=== PATIENT | male | born 1990 | race Caucasian/White ===

== ENCOUNTER 2017-04-11 14:49 | Emergency (ER) | payer SELFPAY ==
[~2017-04-11] VITALS: Ht 170.2 cm; Wt 65.8 kg
[~2017-04-11 14:49] MED LIST: AC325T PO; AMOX500C2 PO; CODE-54 PO; CPR500T PO; DICL50TA3 PO; DICL50TA4 PO; HYDR-1231 PO; HYDR-34 PO; HYDR-707 PO; IBP600T1 PO; NAPR-243 PO; OSLT75CRX PO; SULF1TAB38 PO; VICODIN PO
--- OUTSIDE RECORDS SUMMARY | 2017-04-11 14:54 | XMS REPORT ---
Author CARSON Graham [facility] eClinicalWorks Address Unknown Phone Unavailable Care Team Providers Care Chairman President And Chief Executive Officer Name Role Phone CARSON SILVEIRA CP Unavailable Allergies, Adverse Reactions, Alerts Substance Reaction Event Type N.K.D.A. Info Not Available Non Drug Allergy Problems Problem Type Condition ICD-9 Code Onset Dates Condition Status Assessment Back pain 724.5 Active Problem Pain in joint, shoulder region 719.41 Active Medications Medication Code System Code Instructions Start Date End Date Status Dosage Diclofenac Sodium [facility] [address]-68 75 MG Orally 2 times a day as needed Jul 15, 2015 1 tablet Procedures Procedure Coding System Code Date Office Visit, Est Pt., Level 3 CPT-4 84647 Mar 25, 2015 Vital Signs Date/Time: Mar 25, 2015 Temperature 97.8 F Weight 145.3 lbs Height 68 in Pain Scale 6 1-10 Blood Pressure Diastolic 64 mmHg Blood Pressure Systolic 118 mmHg Cardiac Monitoring Heart Rate 72 bpm BMI 22.09 Index Results No Known Results Summary Purpose eClinicalWorks Submission
--- OUTSIDE RECORDS SUMMARY | 2017-04-11 14:54 | XMS REPORT ---
Author FEDERICA Smith Organization eClinicalWorks Address Unknown Phone Unavailable Care Team Providers Care Rolloff Truck Driver Name Role Phone FEDERICA WASSERMAN CP Unavailable Allergies No Known Allergies Problems Problem Type Condition Code Onset Dates Condition Status Problem Anxiety F41.9 Active Problem Pain in joint, shoulder region 719.41 Active Problem Major depressive disorder with single episode, remission status unspecified F32.9 Active Medications Medication Code System Code Instructions Start Date End Date Status Dosage Lexapro [facility] [address]-77 5 mg Orally Once a day February 06, 2016 2 tablets Clonidine HCl [facility] [address]-64 0.1 MG Orally twice a day February 06, 2016 1 tablet Results No Known Results Summary Purpose eClinicalWorks Submission
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
[2017-04-11] MEDS ORDERED: ACETAMINOPHEN 500 MG TAB (TYLENOL) PO ONE (15:15)
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
--- NOTE | 2017-04-11 15:28 | Diagnostic Imaging Report ---
INDICATION: Shortness of breath with body aches. EXAMINATION: PA and lateral views of the chest were obtained. FINDINGS: The lungs are well-aerated and clear. Heart is not enlarged. No hilar adenopathy. No pulmonary edema. No pneumothorax or pleural effusion. IMPRESSION: Normal PA and lateral chest. Dictated by: Dictated on workstation # [id number]
[2017-04-11 15:37] LABS: BASOPHILS # (AUTO) 0.1 10^3/uL (0.0-0.1); BASOPHILS % (AUTO) 1 % (0-10); EOSINOPHILS # (AUTO) 0.1 10^3/uL (0.0-0.3); EOSINOPHILS % (AUTO) 2 % (0-10); LYMPHOCYTES # (AUTO) 1.6 X 10^3 (1.0-4.0); LYMPHOCYTES % (AUTO) 26 % (12-44); MEAN CORPUSCULAR HEMOGLOBIN 33 PG (25-34); MEAN CORPUSCULAR HGB CONC 34 G/DL (32-36); MEAN CORPUSCULAR VOLUME 98 FL (80-99); MONOCYTES % (AUTO) 16 % (0-12); NEUTROPHILS # (AUTO) 3.3 X 10^3 (1.8-7.8); NEUTROPHILS % (AUTO) 55 % (42-75); PLATELET COUNT 189 10^3/uL (130-400); RED BLOOD COUNT 4.84 10^6/uL (4.35-5.85); RED CELL DISTRIBUTION WIDTH 13.5 % (10.0-14.5); WHITE BLOOD COUNT 6.1 10^3/uL (4.3-11.0)
[2017-04-11 15:56] LABS: ALANINE AMINOTRANSFERASE 14 U/L (0-55); ALBUMIN 4.2 GM/DL (3.2-4.5); ANION GAP 9 MMOL/L (5-14); ASPARTATE AMINO TRANSFERASE 16 U/L (5-34); BILIRUBIN,TOTAL 0.2 MG/DL (0.1-1.0); BLOOD UREA NITROGEN 11 MG/DL (7-18); BUN/CREATININE RATIO 12; CALCIUM 9.7 MG/DL (8.5-10.1); CARBON DIOXIDE 27 MMOL/L (21-32); CHLORIDE 100 MMOL/L (98-107); CREATININE SERUM 0.91 MG/DL (0.60-1.30); GFR ESTIMATED > 60; GLUCOSE 93 MG/DL (70-105); POTASSIUM 4.3 MMOL/L (3.6-5.0); SODIUM 136 MMOL/L (135-145); TOTAL PROTEIN 7.2 GM/DL (6.4-8.2)
[2017-04-11 16:23] VITALS: BP 123/72
== END 2017-04-11 16:23 | disposition home or self-care (01) ==
LOC: EDUNIT# 14:49 → ER 14:50
DX: J06.9 Acute upper respiratory infection, unspecified (principal); F41.9 Anxiety disorder, unspecified; F17.210 Nicotine dependence, cigarettes, uncomplicated; Z87.81 Personal history of (healed) traumatic fracture; Z87.828 Personal history of other (healed) physical injury and trauma
CPT/HCPCS: 36415; 71020; 80053; 85025; 99283

== ENCOUNTER 2017-12-22 03:11 | Emergency (ER) | payer OTHER ==
[~2017-12-22] VITALS: Ht 172.7 cm; Wt 77.1 kg
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
[2017-12-22 04:30] LABS: BASOPHILS % (AUTO) 0 % (0-10); EOSINOPHILS % (AUTO) 0 % (0-10); HEMATOCRIT 41 % (40-54); HEMOGLOBIN 13.8 G/DL (13.3-17.7); LYMPHOCYTES # (AUTO) 1.6 X 10^3 (1.0-4.0); LYMPHOCYTES % (AUTO) 18 % (12-44); MEAN CORPUSCULAR HEMOGLOBIN 32 PG (25-34); MEAN CORPUSCULAR HGB CONC 34 G/DL (32-36); MEAN CORPUSCULAR VOLUME 94 FL (80-99); MEAN PLATELET VOLUME 9.9 FL (7.4-10.4); MONOCYTES # (AUTO) 1.5 X 10^3 (0.0-1.0); MONOCYTES % (AUTO) 16 % (0-12); NEUTROPHILS % (AUTO) 66 % (42-75); PLATELET COUNT 273 10^3/uL (130-400); RED BLOOD COUNT 4.37 10^6/uL (4.35-5.85); RED CELL DISTRIBUTION WIDTH 15.5 % (10.0-14.5); WHITE BLOOD COUNT 9.1 10^3/uL (4.3-11.0)
[2017-12-22 05:12] LABS: ALANINE AMINOTRANSFERASE 129 U/L (0-55); ALBUMIN 4.9 GM/DL (3.2-4.5); ALKALINE PHOSPHATASE 48 U/L (40-136); BILIRUBIN,TOTAL 0.6 MG/DL (0.1-1.0); BUN/CREATININE RATIO 16; CALCIUM 9.7 MG/DL (8.5-10.1); CARBON DIOXIDE 23 MMOL/L (21-32); CHLORIDE 106 MMOL/L (98-107); CREATININE SERUM 0.92 MG/DL (0.60-1.30); GFR ESTIMATED > 60; GLUCOSE 106 MG/DL (70-105); POTASSIUM 3.6 MMOL/L (3.6-5.0); SODIUM 141 MMOL/L (135-145); TOTAL PROTEIN 7.8 GM/DL (6.4-8.2)
[2017-12-22 05:41] VITALS: BP 137/92
--- NOTE | 2017-12-22 08:08 | Diagnostic Imaging Report ---
Patient History: Syncope, head injury. Pain and soreness. Technique: Single frontal view of the chest Comparison: 04/11/2017 FINDINGS: The lung volumes are normal. No focal consolidation is seen. No large pleural effusion or pneumothorax is seen. The cardiomediastinal silhouette is normal in size and contour. No acute osseous abnormality is seen. There is an old healed left clavicular fracture. IMPRESSION: No acute pulmonary abnormality seen. Dictated by: Dictated on workstation # [id number]
--- NOTE | 2017-12-22 08:17 | Diagnostic Imaging Report ---
PATIENT HISTORY: Syncope, head injury, fall. Pain and soreness. TECHNIQUE: 3 views of the cervical spine COMPARISON: 11/21/2012. CT from 09/17/2013 FINDINGS: There is reversal of the cervical lordosis centered at C4 which may be positional. No spondylolisthesis is seen. Minimal uncovertebral arthropathy is seen at C5-6. Vertebral body heights and disc heights are generally preserved. Prevertebral soft tissues are unremarkable. The C1-2 alignment appears normal. No acute fracture is seen. IMPRESSION: 1. No acute osseous abnormality seen in the cervical spine. Dictated by: Dictated on workstation # [id number]
== END 2017-12-22 05:40 | disposition home or self-care (01) ==
LOC: EDUNIT# 03:11 → ER 03:16
DX: S09.90XA Unspecified injury of head, initial encounter (principal); R55 Syncope and collapse; M54.2 Cervicalgia; R74.0 Nonspecific elevation of levels of transaminase and lactic acid dehydrogenase [LDH]; R45.851 Suicidal ideations; F41.9 Anxiety disorder, unspecified; F15.90 Other stimulant use, unspecified, uncomplicated; Z98.890 Other specified postprocedural states; Z87.81 Personal history of (healed) traumatic fracture; W18.30XA Fall on same level, unspecified, initial encounter; Y92.148 Other place in prison as the place of occurrence of the external cause
CPT/HCPCS: 36415; 71045; 72040; 80053; 80320; 85025

== ENCOUNTER 2018-03-28 16:09 | Emergency (ER) | payer SELFPAY ==
[~2018-03-28] VITALS: Ht 172.7 cm; Wt 72.6 kg
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
[2018-03-28] MEDS ORDERED: NS IV 1000 ML 1,000 ML IV SCH ×2 (17:00→18:30)
[2018-03-28] MEDS ORDERED: fentaNYL INJECTION 100 MCG/2 ML AMP IVP ONE (17:00)
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
[2018-03-28 17:28] LABS: BASOPHILS % (AUTO) 1 % (0-10); EOSINOPHILS # (AUTO) 0.1 10^3/uL (0.0-0.3); EOSINOPHILS % (AUTO) 1 % (0-10); HEMATOCRIT 42 % (40-54); HEMOGLOBIN 14.3 G/DL (13.3-17.7); LYMPHOCYTES # (AUTO) 1.9 X 10^3 (1.0-4.0); LYMPHOCYTES % (AUTO) 37 % (12-44); MEAN CORPUSCULAR HEMOGLOBIN 32 PG (25-34); MEAN CORPUSCULAR HGB CONC 34 G/DL (32-36); MEAN CORPUSCULAR VOLUME 95 FL (80-99); MEAN PLATELET VOLUME 10.6 FL (7.4-10.4); MONOCYTES # (AUTO) 0.7 X 10^3 (0.0-1.0); MONOCYTES % (AUTO) 13 % (0-12); NEUTROPHILS # (AUTO) 2.4 X 10^3 (1.8-7.8); NEUTROPHILS % (AUTO) 48 % (42-75); PLATELET COUNT 225 10^3/uL (130-400); RED BLOOD COUNT 4.41 10^6/uL (4.35-5.85); RED CELL DISTRIBUTION WIDTH 13.3 % (10.0-14.5); WHITE BLOOD COUNT 5.1 10^3/uL (4.3-11.0)
[2018-03-28 17:49] LABS: ALANINE AMINOTRANSFERASE 15 U/L (0-55); ALBUMIN 4.9 GM/DL (3.2-4.5); ALKALINE PHOSPHATASE 50 U/L (40-136); BILIRUBIN,TOTAL 0.5 MG/DL (0.1-1.0); BUN/CREATININE RATIO 8; CALCIUM 9.9 MG/DL (8.5-10.1); CARBON DIOXIDE 28 MMOL/L (21-32); CHLORIDE 104 MMOL/L (98-107); CREATININE SERUM 1.19 MG/DL (0.60-1.30); GFR ESTIMATED > 60; GLUCOSE 98 MG/DL (70-105); POTASSIUM 3.4 MMOL/L (3.6-5.0); SODIUM 141 MMOL/L (135-145); TOTAL PROTEIN 7.6 GM/DL (6.4-8.2)
--- NOTE | 2018-03-28 18:07 | Diagnostic Imaging Report ---
PROCEDURE: CT urinary tract, rule out kidney stone. TECHNIQUE: Multiple contiguous axial images were obtained through the abdomen and pelvis without the use of intravenous contrast. INDICATION: Difficulty urinating. History of kidney stone. COMPARISON: 09/17/2013. FINDINGS: The kidneys show mild increased density of the renal pyramids which could be secondary to medullary sponge kidney. There are no focal kidney calculi. The renal outlines are smooth. There is no evidence of hydronephrosis. The ureters are not dilated. The bladder does show urine present with smooth wall. No evidence of outlet obstruction. Prostate is not enlarged. No pelvic masses. The stomach and small bowel are not distended. The colon shows normal stool and gas pattern. No evidence of constipation. The appendix is normal. There is no free air or free fluid. No intra-abdominal adenopathy. The lung bases are clear. The liver appears normal. Gallbladder and bile ducts are normal. Pancreas and spleen are normal. The adrenal glands are normal. No bony abnormalities. IMPRESSION: 1. There are no acute findings demonstrated within the abdomen or pelvis. Specifically, no evidence of renal calculi or obstruction. 2. Mild increased density of the renal pyramids of the kidneys bilaterally which may be secondary to mild medullary sponge kidneys. Clinical correlation. Dictated by: Dictated on workstation # [id number]
[2018-03-28 18:31] LABS: CLARITY,URINE VERY CLOUDY; COLOR,URINE AMBER; GLUCOSE, URINE (UA) NEGATIVE (NEGATIVE); KETONES,URINE 1+ (NEGATIVE); LEUKOCYTE ESTERASE ,URINE 1+ (NEGATIVE); NITRITE,URINE NEGATIVE (NEGATIVE); PH,URINE 6 (5-9); PROTEIN,URINE 2+ (NEGATIVE); UROBILINOGEN,URINE 1 MG/DL (NORMAL)
[2018-03-28 18:46] LABS: BACTERIA,URINE NEGATIVE /HPF; BILIRUBIN,URINE 1+ (NEGATIVE); CALCIUM OXALATE CRYSTALS,UR FEW /LPF; RBC,URINE >100 /HPF; URINE OTHER FEW SPERM /HPF
[2018-03-28] MEDS ORDERED: SULF1TAB35 PO (18:50)
[2018-03-28 18:54] LABS: AMPHETAMINE SCREEN, URINE POSITIVE (NEGATIVE); BARBITURATE SCREEN URINE NEGATIVE (NEGATIVE); BENZODIAZEPINES SCREEN URINE NEGATIVE (NEGATIVE); CANNABINOID SCREEN, URINE POSITIVE (NEGATIVE); COCAINE SCREEN URINE NEGATIVE (NEGATIVE); METHADONE STAT NEGATIVE (NEGATIVE); METHAMPHETAMINE SCREEN URINE S NEGATIVE (NEGATIVE); OPIATE SCREEN URINE NEGATIVE (NEGATIVE); OXYCODONE STAT NEGATIVE (NEGATIVE); PROPOXYPHENE STAT NEGATIVE (NEGATIVE); TRICYCLIC ANTIDEPRESSANTS SCRE NEGATIVE (NEGATIVE)
[2018-03-28] MEDS ORDERED: LEVOFLOXACIN 500 MG TAB (LEVAQUIN) PO ONE (19:00)
[2018-03-28 20:05] VITALS: BP 118/91
== END 2018-03-28 20:05 | disposition home or self-care (01) ==
LOC: EDUNIT# 16:09 → ER 16:11
DX: N39.0 Urinary tract infection, site not specified (principal); R34 Anuria and oliguria; F41.9 Anxiety disorder, unspecified; Z82.49 Family history of ischemic heart disease and other diseases of the circulatory system; Z87.442 Personal history of urinary calculi
CPT/HCPCS: 36415; 74176; 80053; 80306; 81000; 85025; 87088; 96361; 96374

== ENCOUNTER 2018-04-19 15:45 | Emergency (ER) | payer SELFPAY ==
[~2018-04-19] VITALS: Ht 175.3 cm; Wt 77.1 kg
[~2018-04-19 15:45] MED LIST changes: +SULF1TAB35 PO
[2018-04-19] MEDS ORDERED: FLUORESCEIN (FLUOR-I-STRIPS) 1 MG STRP ONE (17:22)
[2018-04-19] MEDS ORDERED: TETRACAINE 0.5% OPHTH SOLN 4 ML BTL (SINGLE DOSE ONLY) ONE (17:22)
[2018-04-19] MEDS ORDERED: TETRACAINE 0.5% OPHTH SOLN 4 ML BTL (SINGLE DOSE ONLY) OU ONE (17:30)
[2018-04-19] MEDS ORDERED: FLUORESCEIN (FLUOR-I-STRIPS) 1 MG STRP OU ONE (17:30)
[2018-04-19] MEDS ORDERED: RX-TOBRA/DEXAMETH (TOBRADEX) OP. SUSP 2.5 ML BTL OU STA (17:38)
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
[2018-04-19 17:50] VITALS: BP 126/93
== END 2018-04-19 17:51 | disposition home or self-care (01) ==
LOC: EDUNIT# 15:45 → ER 15:47
DX: S05.01XA Injury of conjunctiva and corneal abrasion without foreign body, right eye, initial encounter (principal); H20.00 Unspecified acute and subacute iridocyclitis; F41.9 Anxiety disorder, unspecified; F17.210 Nicotine dependence, cigarettes, uncomplicated; Z82.49 Family history of ischemic heart disease and other diseases of the circulatory system; X58.XXXA Exposure to other specified factors, initial encounter
CPT/HCPCS: 99283

== ENCOUNTER 2018-05-16 03:28 | Emergency (ER) | payer SELFPAY ==
[~2018-05-16] VITALS: Ht 175.3 cm; Wt 68.0 kg
[2018-05-16] MEDS ORDERED: AZITHROMYCIN 250 MG TAB (ZITHROMAX) PO STA (03:41)
[2018-05-16] MEDS ORDERED: LIDOCAINE 1% INJ 20 ML 20 ML VIAL INJ ONE (03:45)
[2018-05-16] MEDS ORDERED: cefTRIAXone 250 MG/2.5 ML for IV (ROCEPHIN) IM ONE (03:45)
--- NOTE | 2018-05-16 03:50 | ED GU-Male ---
General Chief Complaint: -Male Stated Complaint: PROBLEMS IN PRIVATE AREA Nursing Triage Note: penile discharge, difficulty urinating, painful intercourse Source: patient Exam Limitations: no limitations History of Present Illness Date Seen by Provider: May 16, 2018 Time Seen by Provider: 03:35 Initial Comments Here with report of yellow discharge from the penis. This is been going on for about 3 days. Pain with urination and sexual activity. History of unprotected sex with current and previous sexual partner. Timing/Duration: getting worse, other (3 days) Severity/Quality: moderate Location: urethral Radiation: none Activities at Onset: sexual activity Prior Genitourinary Problems: none Sexual [place] History: less than 2 months ago, multiple partners Modifying Factors: Worsens With Urinating Associated Symptoms: dysuria, urinary frequency Allergies and Home Medications Allergies Coded Allergies: No Known Drug Allergies (Unverified , 03/20/10) Patient Home Medication List Home Medication List Reviewed: Yes Review of Systems Review of Systems Constitutional: see HPI; No chills, No fever Respiratory: no symptoms reported Cardiovascular: no symptoms reported Gastrointestinal: no symptoms reported Genitourinary: see HPI, burning, discharge Past Uijaaok-Yuanbm-Snulvp Hx Past Med/Social Hx: Reviewed Nursing Past Med/Soc Hx Patient Social History Alcohol Use: Denies Use Recreational Drug Use: No Drug of Choice: meth Smoking Status: Current Everyday Smoker Type Used: Cigarettes 2nd Hand Smoke Exposure: Yes Recent Foreign Travel: No Contact w/Someone Who Travel: No Recent Infectious Disease Expo: No Recent Hopitalizations: No Immunizations Up To Date Tetanus Booster (TDap): Less than 5yrs Seasonal Allergies Seasonal Allergies: No Past Medical History Surgeries: Yes Orthopedic Respiratory: No Cardiac: No Neurological: No Reproductive Disorders: No Sexually Transmitted Disease: Yes HIV/AIDS: No Genitourinary: No Gastrointestinal: No Musculoskeletal: Yes Fractures Endocrine: No HEENT: No Loss of Vision: Denies Hearing Impairment: Denies Cancer: No Psychosocial: No Anxiety Integumentary: No Blood Disorders: No Family Medical History Reviewed Nursing Family Hx Arthritis 19 FATHER 19 MOTHER G8 BROTHER G8 SISTER Cardiovascular disease . Diabetes mellitus Dysphasia 19 MOTHER Gastroenteritis 19 FATHER Hypertension . Myocardial infarction . Tuberculosis 19 FATHER 19 MOTHER No Family History of: AIDS Abdominal aortic aneurysm Hernando's disease Alcoholism Alzheimer's disease Aphasia Asthma Cancer of mouth Cataracts Colon cancer Completed stroke Congenital disease Congenital heart disease Coronary thrombosis Cystic fibrosis Deafness or hearing loss Dementia Fibrocystic disease of breast Glaucoma Headache disorder Hypercholesterolemia Infertility Kidney disease Neoplasm Not obtainable due to adoption Osteoporosis Parkinson's disease Prostate cancer Psychosocial problem Respiratory disorder Seizure disorder Severe allergy Thyroid disease Visual disorder Physical Exam Vital Signs Vital Signs - First Documented 05/16/18 03:35 Temp 97.5 Pulse 90 Resp 20 B/P (MAP) 150/92 (111) Pulse Ox 99 O2 Delivery Room Air Capillary Refill : Less Than 3 Seconds Height, Weight, BMI Height: 5'9.00" Weight: 150lbs. 0oz. 68.655207sr; 22.96 BMI Method:Stated General Appearance: WD/WN, no apparent distress Cardiovascular: regular rate, rhythm, no murmur Respiratory: lungs clear, normal breath sounds Male: No inguinal tenderness, No testicular tenderness; other (and will discharge at urethral meatus) Neurologic/Psychiatric: alert, oriented x 3 Skin: normal color, warm/dry Progress/Results/Core Measures Suspected Sepsis Recent Fever Within 48 Hours: No Infection Criteria Present: None New/Unexplained Altered Menta: No Sepsis Screen: No Definite Risk SIRS Temperature:97.5 Pulse: 90 Respiratory Rate: 20 Blood Pressure 150 /92 Mean: 111 Results/Orders My Orders Orders - FARHANA WOLFE MD Ua Culture If Indicated (05/16/18 03:41) Rocephin 250mg Im (05/16/18 03:45) Azithromycin Tablet (Zithromax Tablet) (05/16/18 03:41) Lidocaine 1% Inj 20 Ml (Xylocaine 1% Inj (05/16/18 03:45) Chlam Dna Probe (05/16/18 03:41) Neis Keo Dna Urine Test (05/16/18 03:41) Vital Signs/I&O 05/16/18 03:35 Temp 97.5 Pulse 90 Resp 20 B/P (MAP) 150/92 (111) Pulse Ox 99 O2 Delivery Room Air Capillary Refill : Less Than 3 Seconds Blood Pressure Mean: 111 Progress Note : Progress Note Seen and evaluated. Obvious findings of STI. Rocephin 250 mg IM and Zithromax 1 g by mouth. Discharged home with return precautions. Patient verbalize understanding instructions and agreement with plan. Departure Impression Primary Impression: Sexually transmitted disease Disposition: 01 HOME, SELF-CARE Condition: Improved Departure-Patient Inst. Decision time for Depature: 03:49 Referrals: [facility] (PCP/Family) Primary Care Physician Patient Instructions: Sexually-Transmitted Diseases (DC) Add. Discharge Instructions: All discharge instructions reviewed with patient and/or family. Voiced understanding. You need to inform your sexual partners of concerns for sexual transmitted disease. Follow-up at health department in 7-10 days for test of cure. Return for worse pain, fever, vomiting, weakness, breathing problems or other concerns as needed. Your symptoms should improve over the next several days. No sexual activity until you have test of cure. FARHANA WOLFE MD May 16, 2018 03:50
[2018-05-16 03:51] LABS: BILIRUBIN,URINE NEGATIVE (NEGATIVE); CLARITY,URINE VERY CLOUDY; COLOR,URINE YELLOW; GLUCOSE, URINE (UA) NEGATIVE (NEGATIVE); KETONES,URINE NEGATIVE (NEGATIVE); LEUKOCYTE ESTERASE ,URINE 3+ (NEGATIVE); NITRITE,URINE NEGATIVE (NEGATIVE); PH,URINE 6.5 (5-9); PROTEIN,URINE 2+ (NEGATIVE); UROBILINOGEN,URINE NORMAL (NORMAL)
[2018-05-16 03:55] VITALS: BP 150/92
[2018-05-16 04:03] LABS: BACTERIA,URINE FEW /HPF; SQUAMOUS EPITHELIAL CELL,UR 0-2 /HPF; WBC,URINE 25-50 /HPF
== END 2018-05-16 04:00 | disposition home or self-care (01) ==
LOC: EDUNIT# 03:28 → ER 03:30
DX: A64 Unspecified sexually transmitted disease (principal); F41.9 Anxiety disorder, unspecified; F17.210 Nicotine dependence, cigarettes, uncomplicated
CPT/HCPCS: 36415; 81000; 87077; 87088; 87185; 87491; 87591; 96372; 99284

== ENCOUNTER 2019-09-12 01:48 | Emergency (ER) | payer SELFPAY ==
--- NOTE | 2019-09-12 03:10 | NUR ---
PT PRESENTED TO REGISTRATION DESK TO STATE HE WAS GOING TO LEAVE. NO LWBS/AMA FORM SIGNED.
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
== END 2019-09-12 03:10 | disposition left against medical advice (07) ==
LOC: EDUNIT# 01:48 → ER 01:51
DX: K08.89 Other specified disorders of teeth and supporting structures (principal); R19.7 Diarrhea, unspecified; R42 Dizziness and giddiness; R11.10 Vomiting, unspecified

== ENCOUNTER 2019-09-22 13:24 | Emergency (ER) | payer SELFPAY ==
[~2019-09-22] VITALS: Ht 175.3 cm; Wt 69.9 kg
[2019-09-22 13:31] VITALS: BP 121/79
[2019-09-22] MEDS ORDERED: TETRACAINE 0.5% OPHTH SOLN 4 ML BTL (SINGLE DOSE ONLY) OU ONE (13:45)
[2019-09-22] MEDS ORDERED: BSS 15 ML IR ONE (13:45)
[2019-09-22] MEDS ORDERED: FLUORESCEIN (FLUOR-I-STRIPS) 1 MG STRP OU ONE (13:45)
--- NOTE | 2019-09-22 14:08 | ED EENT ---
History of Present Illness General Chief Complaint: Eye Problems Stated Complaint: R EYE INJ Nursing Triage Note: PT AMBULATE TO TRIAGE WITH C/O RIGHT EYE INJURY. PT WAS SEEN IN CLINIC 09/20/19 AND GIVEN ABX. PT STATES EYE IS NOT BETTER YET. PT REPORTS RIGHT SIDED NECK PAIN AND SWELLING SINCE INJURY. Source: patient Exam Limitations: no limitations History of Present Illness Date Seen by Provider: Sep 22, 2019 Time Seen by Provider: 14:03 Initial Comments To ER with right eye redness. He wiped his eye on 09/19/19 because he was sweating he was sweating. That evening he noticed redness and pain to the eye. He saw [facility] the next day and was given Polysporin ophthalmic. Despite 2 days of use of that the eye is still very red and somewhat painful. Does have a small amount of discharge at the medial canthus of his eye in the mornings. Does not work contact lenses. Timing/Duration: abrupt Location: eye (R) Associated Symptoms: denies symptoms Allergies and Home Medications Allergies Coded Allergies: No Known Drug Allergies (Unverified , 03/20/10) Home Medications Erythromycin Base 1 Gm Oint...g., 0 OP Q6H 1/2 inch Prescribed by: ALEX ARMSTRONG on 09/22/19 1412 Ketorolac Tromethamine 5 Ml Drops, 1 DROP OP QID PRN for PAIN-MODERATE (5-7) Prescribed by: ALEX ARMSTRONG on 09/22/19 1412 Patient Home Medication List Home Medication List Reviewed: Yes Review of Systems Review of Systems Constitutional: see HPI Eyes: See HPI Ears: Pain Nose: no symptoms reported Mouth: no symptoms reported Throat: no symptoms reported Respiratory: no symptoms reported Cardiovascular: no symptoms reported Musculoskeletal: no symptoms reported Past Ysdwqds-Ubgaiu-Posuci Hx Patient Social History Alcohol Use: Denies Use Recreational Drug Use: No Drug of Choice: meth Smoking Status: Current Everyday Smoker Type Used: Cigarettes 2nd Hand Smoke Exposure: Yes Recent Foreign Travel: No Contact w/Someone Who Travel: No Recent Infectious Disease Expo: No Recent Hopitalizations: No Physical Abuse: No Sexual Abuse: No Mistreated: No Fear: No Immunizations Up To Date Tetanus Booster (TDap): Less than 5yrs Seasonal Allergies Seasonal Allergies: No Past Medical History Surgeries: Yes Orthopedic Respiratory: No Cardiac: No Neurological: No Reproductive Disorders: No Sexually Transmitted Disease: Yes HIV/AIDS: No Genitourinary: No Gastrointestinal: No Musculoskeletal: Yes Fractures Endocrine: No HEENT: No Loss of Vision: Denies Hearing Impairment: Denies Cancer: No Psychosocial: No Anxiety Integumentary: No Blood Disorders: No Family Medical History Arthritis 19 FATHER 19 MOTHER G8 BROTHER G8 SISTER Cardiovascular disease . Diabetes mellitus Dysphasia 19 MOTHER Gastroenteritis 19 FATHER Hypertension . Myocardial infarction . Tuberculosis 19 FATHER 19 MOTHER No Family History of: AIDS Abdominal aortic aneurysm [place]'s disease Alcoholism Alzheimer's disease Aphasia Asthma Cancer of mouth Cataracts Colon cancer Completed stroke Congenital disease Congenital heart disease Coronary thrombosis Cystic fibrosis Deafness or hearing loss Dementia Fibrocystic disease of breast Glaucoma Headache disorder Hypercholesterolemia Infertility Kidney disease Neoplasm Not obtainable due to adoption Osteoporosis Parkinson's disease Prostate cancer Psychosocial problem Respiratory disorder Seizure disorder Severe allergy Thyroid disease Visual disorder Physical Exam Vital Signs Vital Signs - First Documented 09/22/19 13:31 Temp 36.6 Pulse 81 Resp 17 B/P (MAP) 121/79 (93) O2 Delivery Room Air Height, Weight, BMI Height: 5'9.00" Weight: 150lbs. 0oz. 68.176798ag; 22.00 BMI Method:Stated General Appearance: WD/WN, no apparent distress Eyes: left eye normal inspection, left eye conjunctival inflammation, left eye other (does have the appearance of follicular conjunctivitis in the right eye only, chlamydial conjunctivitis is within the differential. Gonorrhea cornea swab obtained from the lower conjunctival sac. I'll change him from Polysporin Ophthalmic to erythromycin ophthalmic as well as giving him ketorolac eyedrops.); bilateral eye PERRL, bilateral eye EOMI Ears: bilateral ear auricle normal, bilateral ear canal normal, bilateral ear TM normal Mouth/Throat: normal mouth inspection, pharynx normal Neck: non-tender, full range of motion (delayed healing) Respiratory: no respiratory distress, no accessory muscle use Neurologic/Psychiatric: alert, normal mood/affect Skin: normal color, warm/dry Progress/Results/Core Measures Results/Orders My Orders Orders - ALEX ARMSTRONG APRN Tetracaine 0.5% Ophth Fide Sdv (Tetracai (09/22/19 13:45) Fluorescein Strips (Uuxxp-I-Vdtycr) (09/22/19 13:45) Balanced Salt Irrigation Soln (Bss Irrig (09/22/19 13:45) Eye Culture (09/22/19 14:01) Chlam Dna Probe (09/22/19 14:01) Neisseria Gonorrhea Swab (09/22/19 14:01) Medications Given in ED Current Medications Medications Dose Ordered Sig/Adolfo Route Start Time Stop Time Status Last Admin Dose Admin Balanced Salt Solution 15 ml ONCE ONCE IR 09/22/19 13:45 09/22/19 13:46 DC 09/22/19 13:44 15 ML Fluorescein Sodium 1 mg ONCE ONCE OU 09/22/19 13:45 09/22/19 13:46 DC 09/22/19 13:44 1 MG Tetracaine HCl 4 ml ONCE ONCE OU 09/22/19 13:45 09/22/19 13:46 DC 09/22/19 13:44 4 ML Vital Signs/I&O 09/22/19 13:31 Temp 36.6 Pulse 81 Resp 17 B/P (MAP) 121/79 (93) O2 Delivery Room Air Blood Pressure Mean: 93 Departure Impression Primary Impression: Follicular conjunctivitis of right eye Disposition: HOME, SELF-CARE Condition: Stable Departure-Patient Inst. Decision time for Depature: 14:09 Referrals: [facility] (PCP/Family) Primary Care Physician Patient Instructions: Conjunctivitis ([place]) Add. Discharge Instructions: 1. Stop the current eyedrops 2. Start the new eye ointment, 1/2 inch in the lower eyelid 4 times a day for 5 days. Use the anti-inflammatory eyedrop (ketorolac) 1 drop 4 times daily for pain. All discharge instructions reviewed with patient and/or family. Voiced unde rstanding. Scripts Erythromycin Base (Erythromycin Opthalmic Ointment) 1 Gm Oint...g. 0 OP Q6H for 5 Days, #1 TUBE 1/2 inch Prov: ALEX ARMSTRONG CAREERS ADVISER 09/22/19 Ketorolac Tromethamine (Ketorolac Tromethamine) 5 Ml Drops 1 DROP OP QID PRN for PAIN-MODERATE (5-7), #1 DROPS Prov: ALEX ARMSTRONG CAREERS ADVISER 09/22/19 ALEX ARMSTRONG CAREERS ADVISER Sep 22, 2019 14:08
[2019-09-22] MEDS ORDERED: KETO5DRO14 OP (14:12)
[2019-09-22] MEDS ORDERED: ERYT1OIN6 OP (14:12)
== END 2019-09-22 14:21 | disposition home or self-care (01) ==
LOC: EDUNIT# 13:24 → ER 13:25
DX: H10.011 Acute follicular conjunctivitis, right eye (principal); F17.210 Nicotine dependence, cigarettes, uncomplicated; Z82.49 Family history of ischemic heart disease and other diseases of the circulatory system
CPT/HCPCS: 36415; 87070; 87491; 87591

== ENCOUNTER 2019-12-24 06:57 | Emergency (ER) | payer SELFPAY ==
[~2019-12-24] VITALS: Ht 172.7 cm; Wt 77.2 kg
[~2019-12-24 06:57] MED LIST changes: +ERYT1OIN6 OP; +KETO5DRO14 OP
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
[2019-12-24] MEDS ORDERED: KETOROLAC 30 MG/ML VIAL ONE (08:54)
[2019-12-24] MEDS ORDERED: LACTATED RINGERS 1,000 ML IV ONE (08:54)
[2019-12-24 09:43] LABS: BASOPHILS % (AUTO) 1 % (0-10); EOSINOPHILS # (AUTO) 0.2 10^3/uL (0.0-0.3); EOSINOPHILS % (AUTO) 3 % (0-10); HEMATOCRIT 43 % (40-54); HEMOGLOBIN 14.2 G/DL (13.3-17.7); LYMPHOCYTES # (AUTO) 2.1 X 10^3 (1.0-4.0); LYMPHOCYTES % (AUTO) 26 % (12-44); MEAN CORPUSCULAR HEMOGLOBIN 32 PG (25-34); MEAN CORPUSCULAR HGB CONC 33 G/DL (32-36); MEAN CORPUSCULAR VOLUME 95 FL (80-99); MEAN PLATELET VOLUME 10.4 FL (7.4-10.4); MONOCYTES # (AUTO) 1.1 X 10^3 (0.0-1.0); MONOCYTES % (AUTO) 14 % (0-12); NEUTROPHILS # (AUTO) 4.5 X 10^3 (1.8-7.8); NEUTROPHILS % (AUTO) 56 % (42-75); PLATELET COUNT 258 10^3/uL (130-400); RED CELL DISTRIBUTION WIDTH 13.2 % (10.0-14.5)
--- NOTE | 2019-12-24 09:46 | ED General ---
General Chief Complaint: Cough/Cold/Flu Symptoms Stated Complaint: COUGH SOB, Nursing Triage Note: AMB TO ROOM TRIAGE TAKEN BY DR WOLFE PATIENT REPORTS HE HAS HAD COUGH CONGESTION WITH SOA CONCERN HE WORKS IN [employer] Nursing Sepsis Screen: No Definite Risk Source of Information: Patient Exam Limitations: No Limitations History of Present Illness Date Seen by Provider: Dec 24, 2019 Time Seen by Provider: 08:50 Initial Comments Here with report of Congestion, runny nose, mild sore throat, mild cough, mild shortness of air and overall not feeling well with symptoms including body aches and headache. Onset over the last 2 days but worsened. 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 He does have the Plexiglas divider. There is community spread of COVID-19. He is concerned about COVID-19 infection. Is able to eat and drink okay although states he feels a little bit dehydrated as he is probably not drinking enough. Has not had anything for fever or pain. Denies any known sick contacts. Timing/Duration: 1-2 Days, Getting Worse Severity: Moderate Modifying Factors: improves with Rest Associated Systoms: No Chest Pain; Cough, Fever/Chills, Malaise; No Nausea/Vomiting; Shortness of Air, Weakness Allergies and Home Medications Allergies Coded Allergies: No Known Drug Allergies (Unverified , 03/20/10) Home Medications Erythromycin Base 1 Gm Oint...g., 0 OP Q6H 1/2 inch Prescribed by: ALEX ARMSTRONG on 09/22/19 1412 Ketorolac Tromethamine 5 Ml Drops, 1 DROP OP QID PRN for PAIN-MODERATE (5-7) Prescribed by: ALEX ARMSTRONG on 09/22/19 1412 Patient Home Medication List Home Medication List Reviewed: Yes Review of Systems Review of Systems Constitutional: see HPI, chills, fever, malaise EENTM: see HPI Respiratory: see HPI Cardiovascular: no symptoms reported Gastrointestinal: no symptoms reported Genitourinary: no symptoms reported Musculoskeletal: joint pain, muscle pain Skin: no symptoms reported Psychiatric/Neurological: Headache, Weakness Past Wnxwnpv-Ibvyql-Dpdgkc Hx Past Med/Social Hx: Reviewed Nursing Past Med/Soc Hx Patient Social History Alcohol Use: Denies Use Recreational Drug Use: No Drug of Choice: meth Smoking Status: Current Everyday Smoker Type Used: Cigarettes 2nd Hand Smoke Exposure: Yes Recent Foreign Travel: No Contact w/Someone Who Travel: No Recent Infectious Disease Expo: No Recent Hopitalizations: No Immunizations Up To Date Tetanus Booster (TDap): Less than 5yrs Seasonal Allergies Seasonal Allergies: No Past Medical History Surgeries: Yes Orthopedic Respiratory: No Cardiac: No Neurological: No Reproductive Disorders: No Sexually Transmitted Disease: Yes HIV/AIDS: No Genitourinary: No Gastrointestinal: No Musculoskeletal: Yes Fractures Endocrine: No HEENT: No Loss of Vision: Denies Hearing Impairment: Denies Cancer: No Psychosocial: No Anxiety Integumentary: No Blood Disorders: No Family Medical History Reviewed Nursing Family Hx Arthritis 19 FATHER 19 MOTHER G8 BROTHER G8 SISTER Cardiovascular disease . Diabetes mellitus Dysphasia 19 MOTHER Gastroenteritis 19 FATHER Hypertension . Myocardial infarction . Tuberculosis 19 FATHER 19 MOTHER No Family History of: AIDS Abdominal aortic aneurysm Lassen's disease Alcoholism Alzheimer's disease Aphasia Asthma Cancer of mouth Cataracts Colon cancer Completed stroke Congenital disease Congenital heart disease Coronary thrombosis Cystic fibrosis Deafness or hearing loss Dementia Fibrocystic disease of breast Glaucoma Headache disorder Hypercholesterolemia Infertility Kidney disease Neoplasm Not obtainable due to adoption Osteoporosis Parkinson's disease Prostate cancer Psychosocial problem Respiratory disorder Seizure disorder Severe allergy Thyroid disease Visual disorder Physical Exam Vital Signs Vital Signs - First Documented 12/24/19 08:10 Temp 36.1 Pulse 69 Resp 18 B/P (MAP) 137/75 (95) Pulse Ox 100 O2 Delivery Room Air Capillary Refill : Less Than 3 Seconds Height, Weight, BMI Height: 5'9.00" Weight: 150lbs. 0oz. [id number]; 25.00 BMI Method:Stated General Appearance: No Apparent Distress, WD/WN, Other (drowsy and ill appearing.) HEENT: PERRL/EOMI, Pharyngeal Erythema Neck: Non Tender, Supple Respiratory: Lungs Clear, Normal Breath Sounds Cardiovascular: Regular Rate, Rhythm, No Murmur Gastrointestinal: Non Tender, Soft Back: Normal Inspection, No CVA Tenderness, No Vertebral Tenderness Extremity: Normal Range of Motion, Non Tender Neurologic/Psychiatric: Alert, Oriented x3 Skin: Normal Color, Warm/Dry Progress/Results/Core Measures Suspected Sepsis Recent Fever Within 48 Hours: No Infection Criteria Present: None New/Unexplained Altered Menta: No Sepsis Screen: No Definite Risk SIRS Temperature: Pulse: 69 Respiratory Rate: 18 Laboratory Tests 12/24/19 09:00: White Blood Count 8.0 Blood Pressure 137 /75 Mean: 95 Laboratory Tests 12/24/19 09:00: Creatinine 0.88, Platelet Count 258, Total Bilirubin 0.3 Results/Orders Lab Results Laboratory Tests Test 12/24/19 08:15 12/24/19 09:00 Range/Units White Blood Count 8.0 4.3-11.0 10^3/uL Red Blood Count 4.48 4.35-5.85 10^6/uL Hemoglobin 14.2 13.3-17.7 G/DL Hematocrit 43 40-54 % Mean Corpuscular Volume 95 80-99 FL Mean Corpuscular Hemoglobin 32 25-34 PG Mean Corpuscular Hemoglobin Concent 33 32-36 G/DL Red Cell Distribution Width 13.2 10.0-14.5 % Platelet Count 258 130-400 10^3/uL Mean Platelet Volume 10.4 7.4-10.4 FL Neutrophils (%) (Auto) 56 42-75 % Lymphocytes (%) (Auto) 26 12-44 % Monocytes (%) (Auto) 14 H 0-12 % Eosinophils (%) (Auto) 3 0-10 % Basophils (%) (Auto) 1 0-10 % Neutrophils # (Auto) 4.5 1.8-7.8 X 10^3 Lymphocytes # (Auto) 2.1 1.0-4.0 X 10^3 Monocytes # (Auto) 1.1 H 0.0-1.0 X 10^3 Eosinophils # (Auto) 0.2 0.0-0.3 10^3/uL Basophils # (Auto) 0.0 0.0-0.1 10^3/uL Sodium Level 141 135-145 MMOL/L Potassium Level 3.4 L 3.6-5.0 MMOL/L Chloride Level 106 98-107 MMOL/L Carbon Dioxide Level 25 21-32 MMOL/L Anion Gap 10 5-14 MMOL/L Blood Urea Nitrogen 15 7-18 MG/DL Creatinine 0.88 0.60-1.30 MG/DL Estimat Glomerular Filtration Rate > 60 BUN/Creatinine Ratio 17 Glucose Level 118 H 70-105 MG/DL Calcium Level 8.8 8.5-10.1 MG/DL Corrected Calcium 8.8 8.5-10.1 MG/DL Total Bilirubin 0.3 0.1-1.0 MG/DL Aspartate Amino Transf (AST/SGOT) 20 5-34 U/L Alanine Aminotransferase (ALT/SGPT) 15 0-55 U/L Alkaline Phosphatase 53 40-136 U/L C-Reactive Protein High Sensitivity 0.19 0.00-0.50 MG/DL Total Protein 6.8 6.4-8.2 GM/DL Albumin 4.0 3.2-4.5 GM/DL My Orders Orders - FARHANA WOLFE MD Coronavirus Sars-Cov-2 So 2018 (12/24/19 08:01) Ketorolac Injection (Toradol Injection) (12/24/19 08:54) Lactated Ringers (Lr 1000 Ml Iv Solution (12/24/19 08:54) Cbc With Automated Diff (12/24/19 09:39) Comprehensive Metabolic Panel (12/24/19 09:39) Hs C Reactive Protein (12/24/19 09:39) Ketorolac Injection (Toradol Injection) (12/24/19 10:45) Lactated Ringers (Lr 1000 Ml Iv Solution (12/24/19 10:45) Medications Given in ED Current Medications Medications Dose Ordered Sig/Adolfo Route Start Time Stop Time Status Last Admin Dose Admin Ketorolac Tromethamine 30 mg ONCE ONCE IVP 12/24/19 10:45 12/24/19 10:46 12/24/19 09:00 30 MG Vital Signs/I&O 12/24/19 08:10 Temp 36.1 Pulse 69 Resp 18 B/P (MAP) 137/75 (95) Pulse Ox 100 O2 Delivery Room Air Capillary Refill : Less Than 3 Seconds Blood Pressure Mean: 95 Progress Note : Progress Note Seen and evaluated. COVID-19 testing swab initiated. IV, labs, Toradol 30 mg IV and LR 1 L bolus ordered. Monitor patient. 1046: Overall doing better. Discharge d home with return precautions. Patient verbalize understanding instructions and agreement with plan. Instructed on COVID quarantine requirements and patient verbalize understanding. Departure Impression Primary Impression: Viral infection Additional Impression: COVID 19 evaluation Disposition: 01 HOME, SELF-CARE Condition: Stable Departure-Patient Inst. Decision time for Depature: 10:46 Referrals: [facility] (PCP/Family) Primary Care Physician Patient Instructions: Coronavirus Disease 2019 (COVID-19) (DC), Viral Upper Respiratory Infection, Adult (DC) Add. Discharge Instructions: All discharge instructions reviewed with patient and/or family. Voiced understanding. Drink plenty of fluids and get plenty of rest. You will need to remain on quarantine until test results are noted. If they are negative, you will need to be isolated for 3 days after symptoms resolve. If they are positive, the health department will call you and direct quarantine timeframe. You may take ibuprofen 600 mg every 8 hours as needed for fever or pain. You may take Tylenol/acetaminophen 1000 mg every 8 hours as needed for fever.. Return for worse pain, fever, vomiting, weakness, breathing problems or other concerns as needed. FARHANA WOLFE MD Dec 24, 2019 09:46
[2019-12-24 09:59] LABS: ALANINE AMINOTRANSFERASE 15 U/L (0-55); ALKALINE PHOSPHATASE 53 U/L (40-136); BILIRUBIN,TOTAL 0.3 MG/DL (0.1-1.0); BUN/CREATININE RATIO 17; CALCIUM 8.8 MG/DL (8.5-10.1); CARBON DIOXIDE 25 MMOL/L (21-32); CHLORIDE 106 MMOL/L (98-107); CREATININE SERUM 0.88 MG/DL (0.60-1.30); GFR ESTIMATED > 60; GLUCOSE 118 MG/DL (70-105); POTASSIUM 3.4 MMOL/L (3.6-5.0); SODIUM 141 MMOL/L (135-145); TOTAL PROTEIN 6.8 GM/DL (6.4-8.2)
[2019-12-24] MEDS ORDERED: LACTATED RINGERS 1,000 ML IV SCH (10:45)
[2019-12-24] MEDS ORDERED: KETOROLAC 30 MG/ML VIAL IVP ONE (10:45)
[2019-12-24 10:49] VITALS: BP 114/83
== END 2019-12-24 10:52 | disposition home or self-care (01) ==
LOC: EDUNIT# 06:57 → ER 06:58
DX: B34.9 Viral infection, unspecified (principal); F17.210 Nicotine dependence, cigarettes, uncomplicated; Z82.49 Family history of ischemic heart disease and other diseases of the circulatory system; Z20.828 Contact with and (suspected) exposure to other viral communicable diseases
CPT/HCPCS: 80053; 85025; 86141; 99284; U0002; 36415; 87635

== ENCOUNTER 2019-12-27 19:31 | Emergency (ER) | payer SELFPAY ==
[2019-12-27 20:52] LABS: BASOPHILS % (AUTO) 1 % (0-10); EOSINOPHILS # (AUTO) 0.1 10^3/uL (0.0-0.3); EOSINOPHILS % (AUTO) 1 % (0-10); HEMATOCRIT 46 % (40-54); HEMOGLOBIN 15.4 G/DL (13.3-17.7); LYMPHOCYTES # (AUTO) 2.5 X 10^3 (1.0-4.0); LYMPHOCYTES % (AUTO) 30 % (12-44); MEAN CORPUSCULAR HEMOGLOBIN 32 PG (25-34); MEAN CORPUSCULAR HGB CONC 34 G/DL (32-36); MEAN CORPUSCULAR VOLUME 95 FL (80-99); MEAN PLATELET VOLUME 10.2 FL (7.4-10.4); MONOCYTES # (AUTO) 1.1 X 10^3 (0.0-1.0); MONOCYTES % (AUTO) 13 % (0-12); NEUTROPHILS # (AUTO) 4.7 X 10^3 (1.8-7.8); NEUTROPHILS % (AUTO) 56 % (42-75); PLATELET COUNT 291 10^3/uL (130-400); RED CELL DISTRIBUTION WIDTH 13.2 % (10.0-14.5); WHITE BLOOD COUNT 8.4 10^3/uL (4.3-11.0)
[2019-12-27 20:52] LABS: BILIRUBIN,URINE NEGATIVE (NEGATIVE); CLARITY,URINE CLEAR; COLOR,URINE YELLOW; GLUCOSE, URINE (UA) NEGATIVE (NEGATIVE); KETONES,URINE NEGATIVE (NEGATIVE); LEUKOCYTE ESTERASE ,URINE NEGATIVE (NEGATIVE); NITRITE,URINE NEGATIVE (NEGATIVE); PROTEIN,URINE TRACE (NEGATIVE)
[2019-12-27 20:57] LABS: SMEAR SCAN COMMENT YES
[2019-12-27] MEDS ORDERED: HOLD METFORMIN - RECEIVED CONTRAST 20 ML VIAL IV SCH (21:00)
[2019-12-27] MEDS ORDERED: IOHEXOL 350 MG/ML 100 ML (OMNIPAQUE 350) VIAL IV ONE (21:00)
[2019-12-27] MEDS ORDERED: NS 100 ML (IVPB) BAG IV ONE (21:00)
[2019-12-27 21:02] LABS: BACTERIA,URINE TRACE /HPF; SQUAMOUS EPITHELIAL CELL,UR RARE /HPF; WBC,URINE RARE /HPF
[2019-12-27 21:03] LABS: ALANINE AMINOTRANSFERASE 16 U/L (0-55); ALBUMIN 4.8 GM/DL (3.2-4.5); ALKALINE PHOSPHATASE 59 U/L (40-136); AMYLASE 72 U/L (25-125); BILIRUBIN,TOTAL 0.3 MG/DL (0.1-1.0); BUN/CREATININE RATIO 9; CALCIUM 9.9 MG/DL (8.5-10.1); CARBON DIOXIDE 29 MMOL/L (21-32); CHLORIDE 103 MMOL/L (98-107); CREATININE SERUM 1.19 MG/DL (0.60-1.30); GFR ESTIMATED > 60; GLUCOSE 99 MG/DL (70-105); LIPASE 59 U/L (8-78); POTASSIUM 3.9 MMOL/L (3.6-5.0); SODIUM 142 MMOL/L (135-145); TOTAL PROTEIN 8.1 GM/DL (6.4-8.2)
[2019-12-27 21:09] LABS: AMPHETAMINE SCREEN, URINE POSITIVE (NEGATIVE); BARBITURATE SCREEN URINE NEGATIVE (NEGATIVE); BENZODIAZEPINES SCREEN URINE NEGATIVE (NEGATIVE); CANNABINOID SCREEN, URINE POSITIVE (NEGATIVE); COCAINE SCREEN URINE NEGATIVE (NEGATIVE); METHADONE STAT NEGATIVE (NEGATIVE); METHAMPHETAMINE SCREEN URINE S POSITIVE (NEGATIVE); OPIATE SCREEN URINE NEGATIVE (NEGATIVE); OXYCODONE STAT NEGATIVE (NEGATIVE); PROPOXYPHENE STAT NEGATIVE (NEGATIVE); TRICYCLIC ANTIDEPRESSANTS SCRE NEGATIVE (NEGATIVE)
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
[2019-12-27 21:14] LABS: BAND NEUTROPHILS 0 %; BASOPHILS % (MANUAL) 0 %; EOSINOPHILS % (MANUAL) 2 %; LYMPHOCYTES % (MANUAL) 13 %; MONOCYTES % (MANUAL) 5 %; NEUTROPHILS % (MANUAL) 62 %; REACTIVE LYMPHOCYTES 18 %; TOXIC GRANULATION/VACUOLAZATIO 1+
--- NOTE | 2019-12-27 21:45 | Diagnostic Imaging Report ---
PROCEDURE: CT abdomen and pelvis with contrast, rule out appendicitis. TECHNIQUE: Multiple contiguous axial images were obtained through the abdomen and pelvis after the administration of intravenous contrast. All CT scans use one or more of the following dose optimizing techniques: automated exposure control, MA and/or KvP adjustment based on patient size and exam type or iterative reconstruction. INDICATION: Right-sided abdominal pain. Nausea. COMPARISON: 03/28/2018. FINDINGS: Included portions of the lung bases are clear. CT abdomen: Normal appendix is identified. Small bowel loops are nondistended. Kidneys, adrenal glands, spleen, pancreas and liver have a normal CT appearance. There is no loculated fluid collection, free fluid, or free air within the abdomen. No abnormal mesenteric or retroperitoneal adenopathy is seen. Osseous structures show no acute abnormality. CT pelvis: Urinary bladder is grossly unremarkable. There is no loculated fluid collection, free fluid or free air within the pelvis. No abnormal adenopathy is seen. Osseous structures show no acute abnormality. IMPRESSION: 1. No CT evidence of acute appendicitis. 2. No other acute abnormality is identified within the abdomen or pelvis. Dictated by: Dictated on workstation # [id number]
[2019-12-27] MEDS ORDERED: POLY17PO6 PO (21:49)
[2019-12-27] MEDS ORDERED: KETOROLAC 30 MG/ML VIAL ONE (21:52)
[2019-12-27 21:57] VITALS: BP 128/90
[2019-12-27] MEDS ORDERED: KETOROLAC 30 MG/ML VIAL IVP ONE (22:00)
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
== END 2019-12-27 21:57 | disposition home or self-care (01) ==
LOC: EDUNIT# 19:31 → ER 19:33
DX: K59.00 Constipation, unspecified (principal); Z77.22 Contact with and (suspected) exposure to environmental tobacco smoke (acute) (chronic); Z82.49 Family history of ischemic heart disease and other diseases of the circulatory system
CPT/HCPCS: 36415; 74177; 80053; 80306; 81000; 82150; 83690; 85007; 85025; 85027

== ENCOUNTER 2020-03-06 05:58 | Emergency (ER) | payer SELFPAY ==
[~2020-03-06] VITALS: Ht 172.7 cm; Wt 70.7 kg
[~2020-03-06 05:58] MED LIST changes: +POLY17PO6 PO
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
[2020-03-06] MEDS ORDERED: LIDOCAINE 2% VISCOUS 15 ML UDC PO ONE (06:45)
[2020-03-06] MEDS ORDERED: TRAM-42 PO (07:02)
[2020-03-06] MEDS ORDERED: AMOX500C2 PO (07:02)
[2020-03-06 07:08] VITALS: BP 134/86
== END 2020-03-06 07:09 | disposition home or self-care (01) ==
LOC: EDUNIT# 05:58 → ER 06:00
DX: K02.9 Dental caries, unspecified (principal); Z77.22 Contact with and (suspected) exposure to environmental tobacco smoke (acute) (chronic); Z82.49 Family history of ischemic heart disease and other diseases of the circulatory system
CPT/HCPCS: 99283

== ENCOUNTER 2020-03-10 05:25 | Emergency (ER) | payer SELFPAY ==
[~2020-03-10] VITALS: Ht 173 cm; Wt 68.8 kg
[~2020-03-10 05:25] MED LIST changes: +TRAM-42 PO
[2020-03-10 05:30] VITALS: BP 152/88
[2020-03-10] MEDS ORDERED: IBUP-2380 PO (05:36)
[2020-03-10] MEDS ORDERED: IBUP-1780 PO (05:36)
[2020-03-10] MEDS ORDERED: LIDOCAINE 2% VISCOUS 15 ML UDC PO ONE (06:00)
[2020-03-10] MEDS ORDERED: HYDROcodone/APAP 5 MG/325 MG (LORTAB) TAB PO ONE (06:00)
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
[2020-03-10] MEDS ORDERED: HYDR-3812 PO (06:22)
== END 2020-03-10 06:29 | disposition home or self-care (01) ==
LOC: EDUNIT# 05:25 → ER 05:27
DX: K08.89 Other specified disorders of teeth and supporting structures (principal); F17.210 Nicotine dependence, cigarettes, uncomplicated; Z82.49 Family history of ischemic heart disease and other diseases of the circulatory system; Z20.828 Contact with and (suspected) exposure to other viral communicable diseases
CPT/HCPCS: 99283

== ENCOUNTER 2020-06-06 23:57 | Emergency (ER) | payer SELFPAY ==
[~2020-06-06] VITALS: Ht 172.7 cm; Wt 72.7 kg
[~2020-06-06 23:57] MED LIST changes: +ACHD5005 PO; +IBUP-1780 PO; +IBUP-2380 PO
[2020-06-07 00:30] VITALS: BP 123/91
[2020-06-07 00:56] LABS: BASOPHILS # (AUTO) 0.1 10^3/uL (0.0-0.1); BASOPHILS % (AUTO) 1 % (0-10); EOSINOPHILS # (AUTO) 0.2 10^3/uL (0.0-0.3); EOSINOPHILS % (AUTO) 2 % (0-10); HEMATOCRIT 44 % (40-54); HEMOGLOBIN 14.1 g/dL (13.3-17.7); LYMPHOCYTES # (AUTO) 2.6 10^3/uL (1.0-4.0); LYMPHOCYTES % (AUTO) 34 % (12-44); MEAN CORPUSCULAR HEMOGLOBIN 31 pg (25-34); MEAN CORPUSCULAR HGB CONC 32 g/dL (32-36); MEAN CORPUSCULAR VOLUME 97 fL (80-99); MEAN PLATELET VOLUME 10.1 fL (9.0-12.2); MONOCYTES # (AUTO) 1.1 10^3/uL (0.0-1.0); MONOCYTES % (AUTO) 14 % (0-12); NEUTROPHILS # (AUTO) 3.6 10^3/uL (1.8-7.8); NEUTROPHILS % (AUTO) 48 % (42-75); PLATELET COUNT 274 10^3/uL (130-400); WHITE BLOOD COUNT 7.5 10^3/uL (4.3-11.0)
[2020-06-07 01:02] LABS: ALBUMIN 4.4 GM/DL (3.2-4.5); CHLORIDE 103 MMOL/L (98-107); POTASSIUM 4.2 MMOL/L (3.6-5.0); SODIUM 142 MMOL/L (135-145)
[2020-06-07 01:03] LABS: AMYLASE 70 U/L (25-125); CALCIUM 8.9 MG/DL (8.5-10.1)
[2020-06-07 01:04] LABS: GLUCOSE 92 MG/DL (70-105); TOTAL PROTEIN 7.6 GM/DL (6.4-8.2)
[2020-06-07 01:05] LABS: CARBON DIOXIDE 26 MMOL/L (21-32)
[2020-06-07 01:06] LABS: BILIRUBIN,TOTAL 0.4 MG/DL (0.1-1.0)
[2020-06-07 01:07] LABS: ALKALINE PHOSPHATASE 51 U/L (40-136)
[2020-06-07 01:08] LABS: CREATININE SERUM 1.13 MG/DL (0.60-1.30); GFR ESTIMATED > 60
[2020-06-07 01:09] LABS: BUN/CREATININE RATIO 17
[2020-06-07 01:11] LABS: ALANINE AMINOTRANSFERASE 16 U/L (0-55); LIPASE 74 U/L (8-78)
[2020-06-07 01:43] LABS: BILIRUBIN,URINE NEGATIVE (NEGATIVE); CLARITY,URINE CLEAR; COLOR,URINE YELLOW; GLUCOSE, URINE (UA) NEGATIVE (NEGATIVE); KETONES,URINE NEGATIVE (NEGATIVE); LEUKOCYTE ESTERASE ,URINE NEGATIVE (NEGATIVE); NITRITE,URINE NEGATIVE (NEGATIVE); PROTEIN,URINE NEGATIVE (NEGATIVE)
[2020-06-07 02:09] LABS: BACTERIA,URINE MODERATE /HPF; RBC,URINE RARE /HPF; SQUAMOUS EPITHELIAL CELL,UR RARE /HPF; WBC,URINE 0-2 /HPF
[2020-06-07 02:19] LABS: AMPHETAMINE SCREEN, URINE POSITIVE (NEGATIVE); BARBITURATE SCREEN URINE NEGATIVE (NEGATIVE); BENZODIAZEPINES SCREEN URINE NEGATIVE (NEGATIVE); CANNABINOID SCREEN, URINE POSITIVE (NEGATIVE); COCAINE SCREEN URINE NEGATIVE (NEGATIVE); METHADONE STAT NEGATIVE (NEGATIVE); METHAMPHETAMINE SCREEN URINE S POSITIVE (NEGATIVE); OPIATE SCREEN URINE NEGATIVE (NEGATIVE); OXYCODONE STAT NEGATIVE (NEGATIVE); PROPOXYPHENE STAT NEGATIVE (NEGATIVE); TRICYCLIC ANTIDEPRESSANTS SCRE NEGATIVE (NEGATIVE)
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
--- NOTE | 2020-06-07 05:46 | Diagnostic Imaging Report ---
EXAMINATION: AP supine abdomen INDICATION: Right lower quadrant abdominal pain. COMPARISON: Multiple prior CT scans. FINDINGS: There is a nonobstructive bowel gas pattern. Scattered gas and stool is noted in the colon, with mild retained stool in the descending and sigmoid colon. No pneumoperitoneum on this supine study. No organomegaly or abnormal abdominal calcifications are appreciated. No acute osseous abnormality is identified. IMPRESSION: Nonobstructive bowel gas pattern. No radiographic evidence of an acute abdominal process. Dictated by: Dictated on workstation # [id number]
--- NOTE | 2020-06-07 06:19 | Diagnostic Imaging Report ---
PROCEDURE: CT abdomen and pelvis with contrast, rule out appendicitis. TECHNIQUE: Multiple contiguous axial images were obtained through the abdomen and pelvis after the administration of intravenous contrast. All CT scans use one or more of the following dose optimizing techniques: automated exposure control, MA and/or KvP adjustment based on patient size and exam type or iterative reconstruction. INDICATION: Right lower quadrant abdominal pain. COMPARISON: Multiple priors, most recent performed on 12/27/2019. FINDINGS: Lung bases are clear and the visualized heart is normal in size. There is subtle ill-defined low-attenuation adjacent to the falciform ligament, similar in appearance to prior exams and likely on the basis of focal fatty infiltration. No acute or concerning finding involving the liver. The gallbladder, spleen, pancreas and adrenal glands are unremarkable. Kidneys are symmetric in size and demonstrate normal enhancement, without hydronephrosis or suspicious renal mass in either side. Subcentimeter areas of low-attenuation in both kidneys are too small to characterize but likely represent cysts. The ureters are not well seen. The small bowel and colon are normal in course and caliber, without evidence of wall thickening or obstruction. The appendix is mildly prominent, measuring up to 8 mm in diameter. There is no periappendiceal inflammatory change, however, appendix is hyperemic. No pneumoperitoneum, abdominal free fluid or loculated collection. No lymphadenopathy is appreciated. The bladder is normal. The prostate gland is not enlarged. The aorta is nonaneurysmal. There is no evidence of venous thrombosis. The abdominal wall is unremarkable. No acute osseous abnormality is identified. IMPRESSION: The appendix is mildly enlarged and hyperemic. There is no periappendiceal inflammatory change, pneumoperitoneum or focal fluid collection. Appendicitis should be excluded on a clinical basis. Otherwise, no acute abdominal or pelvic pathology is appreciated. Findings are in agreement with initial teleradiology report. Dictated by: Dictated on workstation # [id number]
== END 2020-06-07 03:24 | disposition left against medical advice (07) ==
LOC: EDUNIT# 23:57 → ER 06-07
DX: R10.31 Right lower quadrant pain (principal); F17.210 Nicotine dependence, cigarettes, uncomplicated; Z82.61 Family history of arthritis; Z82.49 Family history of ischemic heart disease and other diseases of the circulatory system; Z83.3 Family history of diabetes mellitus
CPT/HCPCS: 74018; 74177; 80053; 80306; 81000; 82150; 83690; 85025; 87088; 99284; G0480; 36415; 80320

== ENCOUNTER 2020-10-26 16:46 | Emergency (ER) | payer SELFPAY ==
[~2020-10-26] VITALS: Ht 172 cm; Wt 70.0 kg
[2020-10-26] MEDS ORDERED: CEPHALEXIN 250 MG (KEFLEX) CAP PO ONE (17:00)
[2020-10-26] MEDS ORDERED: HYDROcodone/APAP 5 MG/325 MG (LORTAB) TAB PO ONE (17:00)
[2020-10-26] MEDS ORDERED: CEPH500T PO (17:03)
[2020-10-26] MEDS ORDERED: ACHD5005 PO (17:03)
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
[2020-10-26 17:21] VITALS: BP 116/72
--- NOTE | 2020-10-26 17:34 | Diagnostic Imaging Report ---
INDICATION: Puncture wound. EXAMINATION: Left wrist at 5:11 p.m. Three views were obtained. COMPARISON: There is no prior study available for comparison. There is no fracture, dislocation or acute bony abnormality evident. There is no sign of a soft tissue injury nor is there any evidence for a radiopaque foreign body. IMPRESSION: There is no acute bony abnormality identified. There is no sign of a radiopaque foreign body either. Dictated by: Dictated on workstation # [id number]
== END 2020-10-26 17:22 | disposition home or self-care (01) ==
LOC: EDUNIT# 16:46 → ER 16:48
DX: S61.532A Puncture wound without foreign body of left wrist, initial encounter (principal); Z77.22 Contact with and (suspected) exposure to environmental tobacco smoke (acute) (chronic); W27.0XXA Contact with workbench tool, initial encounter
CPT/HCPCS: 73110

== ENCOUNTER 2021-01-18 04:46 | Emergency (ER) | payer SELFPAY ==
[~2021-01-18] VITALS: Ht 172.7 cm; Wt 68.0 kg
[~2021-01-18 04:46] MED LIST changes: +CEPH500T PO; -SULF1TAB35 PO
[2021-01-18] MEDS ORDERED: KETOROLAC 60 MG/2 ML VIAL IM ONE (05:15)
[2021-01-18] MEDS ORDERED: LIDOCAINE 2% VISCOUS 15 ML UDC PO ONE (05:15)
[2021-01-18] MEDS ORDERED: AMOXICILLIN 500 MG (POLYMOX) CAP PO ONE (05:15)
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
[2021-01-18] MEDS ORDERED: AMOX500C2 PO (05:21)
[2021-01-18] MEDS ORDERED: NAPR-1071 PO (05:21)
[2021-01-18 05:38] VITALS: BP 145/100
== END 2021-01-18 05:37 | disposition home or self-care (01) ==
LOC: EDUNIT# 04:46 → ER 04:48
DX: K02.9 Dental caries, unspecified (principal); K04.7 Periapical abscess without sinus; F17.210 Nicotine dependence, cigarettes, uncomplicated
CPT/HCPCS: 99284

== ENCOUNTER 2021-02-01 07:49 | Emergency (ER) | payer SELFPAY ==
[~2021-02-01] VITALS: Ht 172.7 cm; Wt 68.0 kg
[~2021-02-01 07:49] MED LIST changes: +NAPR-1071 PO
[2021-02-01] MEDS ORDERED: HOLD METFORMIN - RECEIVED CONTRAST 20 ML VIAL IV SCH (08:15)
[2021-02-01] MEDS ORDERED: LACTATED RINGERS 1,000 ML IV ONE (08:15)
[2021-02-01] MEDS ORDERED: NS 100 ML (IVPB) BAG IV ONE (08:15)
[2021-02-01] MEDS ORDERED: IOHEXOL 350 MG/ML 100 ML (OMNIPAQUE 350) VIAL IV ONE (08:15)
[2021-02-01 08:17] LABS: HEMATOCRIT 39 % (40-54); HEMOGLOBIN 13.3 g/dL (13.3-17.7); MEAN CORPUSCULAR HEMOGLOBIN 32 pg (25-34); MEAN CORPUSCULAR HGB CONC 34 g/dL (32-36); MEAN CORPUSCULAR VOLUME 94 fL (80-99); MEAN PLATELET VOLUME 9.8 fL (9.0-12.2); PLATELET COUNT 328 10^3/uL (130-400); WHITE BLOOD COUNT 14.9 10^3/uL (4.3-11.0)
[2021-02-01 08:23] LABS: CHLORIDE 106 MMOL/L (98-107); POTASSIUM 3.1 MMOL/L (3.6-5.0); SODIUM 138 MMOL/L (135-145)
[2021-02-01 08:24] LABS: CALCIUM 8.7 MG/DL (8.5-10.1)
[2021-02-01 08:25] LABS: GLUCOSE 116 MG/DL (70-105)
[2021-02-01 08:26] LABS: TOTAL PROTEIN 6.9 GM/DL (6.4-8.2)
[2021-02-01 08:27] LABS: BILIRUBIN,TOTAL 0.3 MG/DL (0.1-1.0); CARBON DIOXIDE 22 MMOL/L (21-32)
[2021-02-01 08:29] LABS: ALKALINE PHOSPHATASE 52 U/L (40-136); CREATININE SERUM 0.85 MG/DL (0.60-1.30); GFR ESTIMATED 106
[2021-02-01 08:30] LABS: BUN/CREATININE RATIO 11
[2021-02-01 08:31] LABS: BILIRUBIN,DIRECT 0.1 MG/DL (0.0-0.3); BILIRUBIN,INDIRECT 0.2 MG/DL
[2021-02-01 08:32] LABS: ALANINE AMINOTRANSFERASE 19 U/L (0-55)
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
[2021-02-01 09:08] LABS: BLAST CELLS 1 %; LYMPHOCYTES % (MANUAL) 13 %; MONOCYTES % (MANUAL) 6 %; NEUTROPHILS % (MANUAL) 80 %
[2021-02-01 09:09] LABS: MICROCYTOSIS SLIGHT
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
[2021-02-01] MEDS ORDERED: KCL 10 MEQ TAB (MICRO K) PO ONE (09:30)
[2021-02-01 09:42] VITALS: BP 136/87
== END 2021-02-01 09:42 ==
LOC: EDUNIT# 07:49 → ER 07:54
DX: S20.211A Contusion of right front wall of thorax, initial encounter (principal); S40.812A Abrasion of left upper arm, initial encounter; M54.6 Pain in thoracic spine; E87.6 Hypokalemia; F17.210 Nicotine dependence, cigarettes, uncomplicated; V89.2XXA Person injured in unspecified motor-vehicle accident, traffic, initial encounter
CPT/HCPCS: 70450; 70486; 71260; 72125; 72128; 72131; 74177; 80048; 80076; 85007; 85027; 93041; 99284; G0480; 36415; 80320

== ENCOUNTER 2021-04-09 10:51 | Outpatient (RCR) | payer SELFPAY ==
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
== END 2021-07-08 | disposition home or self-care (01) ==
LOC: CARD 10:51
PROVIDERS: ATTEND Internal Medicine Cardiovascular Disease
DX: R55 Syncope and collapse (principal)
CPT/HCPCS: 93270; 93306

== ENCOUNTER 2022-08-28 16:27 | Emergency (ER) | payer OTHER ==
[~2022-08-28] VITALS: Ht 172.7 cm; Wt 68.0 kg
[2022-08-28] MEDS ORDERED: LACTATED RINGERS 1,000 ML IV ONE (16:45)
[2022-08-28 16:46] LABS: BASOPHILS # (AUTO) 0.1 10^3/uL (0.0-0.1); BASOPHILS % (AUTO) 1 % (0-10); EOSINOPHILS % (AUTO) 0 % (0-10); HEMATOCRIT 42 % (40-54); HEMOGLOBIN 14.3 g/dL (13.3-17.7); LYMPHOCYTES # (AUTO) 1.1 X 10^3 (1.0-4.0); LYMPHOCYTES % (AUTO) 11 % (12-44); MEAN CORPUSCULAR HEMOGLOBIN 32 pg (25-34); MEAN CORPUSCULAR HGB CONC 34 g/dL (32-36); MEAN CORPUSCULAR VOLUME 94 fL (80-99); MEAN PLATELET VOLUME 9.5 fL (9.0-12.2); MONOCYTES # (AUTO) 0.9 X 10^3 (0.0-1.0); MONOCYTES % (AUTO) 9 % (0-12); NEUTROPHILS # (AUTO) 7.7 X 10^3 (1.8-7.8); NEUTROPHILS % (AUTO) 79 % (42-75); PLATELET COUNT 268 10^3/uL (130-400); WHITE BLOOD COUNT 9.8 10^3/uL (4.3-11.0)
[2022-08-28] MEDS ORDERED: IOHEXOL 350 MG/ML 100 ML (OMNIPAQUE 350) VIAL IV ONE (17:00)
[2022-08-28] MEDS ORDERED: HOLD METFORMIN - RECEIVED CONTRAST 20 ML VIAL IV SCH (17:00)
[2022-08-28] MEDS ORDERED: NS 100 ML (IVPB) BAG IV ONE (17:00)
[2022-08-28 17:02] LABS: PROTHROMBIN TIME PATIENT 13.7 SEC (12.2-14.7)
[2022-08-28 17:04] LABS: ALBUMIN 4.4 GM/DL (3.2-4.5)
[2022-08-28 17:05] LABS: CALCIUM 9.5 MG/DL (8.5-10.1)
[2022-08-28 17:07] LABS: TOTAL PROTEIN 7.7 GM/DL (6.4-8.2)
[2022-08-28 17:08] LABS: BILIRUBIN,TOTAL 0.4 MG/DL (0.1-1.0)
[2022-08-28 17:10] LABS: CREATININE SERUM 1.09 MG/DL (0.60-1.30)
[2022-08-28 17:14] LABS: MAGNESIUM 2.1 MG/DL (1.6-2.4)
--- NOTE | 2022-08-28 17:33 | Diagnostic Imaging Report ---
INDICATION: Chest pain. COMPARISON: 12/22/2017. FINDINGS: The lungs appear clear without focal airspace opacities or consolidation. There are no findings of an effusion. There is no evidence of a pneumothorax. Heart size and mediastinal contours appear appropriate. Pulmonary vascularity appears within normal limits. There is no acute or suspicious osseous abnormality demonstrated. IMPRESSION: No radiographic evidence of an acute cardiopulmonary process. Dictated by: Dictated on workstation # [id number]
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
[2022-08-28] MEDS ORDERED: KETOROLAC 30 MG/ML VIAL IVP ONE (18:00)
[2022-08-28 19:14] VITALS: BP 135/99
== END 2022-08-28 19:14 | disposition home or self-care (01) ==
LOC: EDUNIT# 16:27 → ER 16:28
DX: R07.89 Other chest pain (principal); F15.10 Other stimulant abuse, uncomplicated; R55 Syncope and collapse; F41.9 Anxiety disorder, unspecified; F17.210 Nicotine dependence, cigarettes, uncomplicated; Y04.8XXA Assault by other bodily force, initial encounter
CPT/HCPCS: 71045; 71275; 74177; 80053; 83735; 83874; 84484; 85025; 85610; 85730; 93041; 99284; G0480; 36415; 80320; 93005